=== PATIENT | female | born 1980 | race Hispanic/Latino ===

== ENCOUNTER 2017-09-06 01:44 | Emergency (ER) | payer BC, OTHER ==
[2017-09-06] MEDS ORDERED: KETOROLAC TROMETHAMINE 30MG/ML ONE (02:03)
[2017-09-06] MEDS ORDERED: DIAZEPAM 5 MG TABLET ONE (02:04)
[2017-09-06] MEDS ORDERED: CYCLOBENZAPRINE HCL 10 MG TABLET ONE (02:04)
== END 2017-09-06 03:06 | disposition home or self-care (01) ==
LOC: EDH 01:44
DX: S39.012A Strain of muscle, fascia and tendon of lower back, initial encounter (principal); Z90.49 Acquired absence of other specified parts of digestive tract; Z72.0 Tobacco use; X58.XXXA Exposure to other specified factors, initial encounter; Y93.89 Activity, other specified; Y92.89 Other specified places as the place of occurrence of the external cause; Y99.8 Other external cause status
CPT/HCPCS: 96372; 99283; J1885